=== PATIENT | female | born 1955 | race Caucasian/White ===

== ENCOUNTER 2023-03-04 13:06 | Inpatient (IN) | payer MEDICARE, OTHER ==
[~2023-03-04] VITALS: Ht 152.4 cm; Wt 56.2 kg
[2023-03-04 14:06] LABS: BASOPHILS # (AUTO) 0.1 K/uL (0.0-0.2); BASOPHILS % (AUTO) 0.7 % (0.0-2.0); EOSINOPHILS # (AUTO) 0.1 K/uL (0.0-0.7); EOSINOPHILS % (AUTO) 0.8 % (0.0-6.0); HEMATOCRIT 41 % (33-45); HEMOGLOBIN 13.7 g/dL (11.5-14.8); LYMPHOCYTES # (AUTO) 7.6 K/uL (0.8-4.8); LYMPHOCYTES % (AUTO) 54.3 % (20.0-44.0); MEAN CORPUSCULAR HEMOGLOBIN 30 PG (26.0-33.0); MEAN CORPUSCULAR HGB CONC 34 g/dl (31.0-36.0); MEAN CORPUSCULAR VOLUME 90 fL (82-100); MONOCYTES % (AUTO) 7.2 % (2.0-12.0); NEUTROPHILS # (AUTO) 5.2 K/uL (1.8-8.9); PLATELET COUNT (AUTO) 256 K/uL (150-450); RED BLOOD CELL COUNT(AUTO) 4.56 MIL/uL (4.0-5.2); RED CELL DISTRIBUTION WIDTH 13.7 % (11.5-15.0); WHITE BLOOD COUNT (AUTO) 13.9 K/uL (4.3-11.0)
[2023-03-04 14:16] LABS: APPEARANCE,URINE SLIGHTLY CLOUDY (CLEAR); BILIRUBIN,URINE NEGATIVE (NEGATIVE); BLOOD, URINE NEGATIVE Ery/uL (NEGATIVE); COLOR,URINE YELLOW (YELLOW); KETONES,URINE 1+ mg/dL (NEGATIVE); LEUKOCYTE ESTERASE ,URINE NEGATIVE (NEGATIVE); NITRITE, URINE NEGATIVE (NEGATIVE); PH,URINE 5.5 (5.0-8.0); PROTEIN,URINE TRACE mg/dl (NEGATIVE); UGLUCOSE TRACE mg/dL (NEGATIVE); UROBILINOGEN,URINE 0.2 EU/dL (0.2)
[2023-03-04 14:21] LABS: CALCIUM, SERUM 9.1 mg/dL (8.5-10.1); CARBON DIOXIDE 28 mmol/L (21-32); CHLORIDE 98 mmol/L (98-107); CREATININE 0.7 mg/dL (0.6-1.3); GLUCOSE 223 mg/dL (74-106); POTASSIUM 3.7 mmol/L (3.5-5.1); SODIUM SERUM 133 mmol/L (136-145); UREA NITROGEN, BLOOD 14 mg/dL (7-18)
[2023-03-04 14:22] LABS: ADD URINE CULTURE NO; BACTERIA,URINE Rare /HPF (None Seen); RBC,URINE 0-2 /HPF (0-2); SQUAMOUS EPITHELIAL CELL,UR Few /HPF (None Seen); WBC,URINE 0-2 /HPF (0-3)
[2023-03-04 14:28] LABS: ALANINE AMINOTRANSFERASE 19 U/L (12-78); ALBUMIN 3.2 g/dL (3.4-5.0); ALKALINE PHOSPHATASE 81 U/L (46-116); ASPARTATE AMINOTRANSFERASE 11 U/L (15-37); BILIRUBIN,DIRECT 0.1 mg/dL (0.0-0.2); BILIRUBIN,TOTAL 0.2 mg/dL (0.2-1.0); SALICYLATE 1.4 mg/dL (2.8-20.0); TOTAL PROTEIN, SERUM 6.8 g/dL (6.4-8.2)
[2023-03-04 14:29] LABS: ACETAMINOPHEN <10 ug/ml (10-30); ALCOHOL, BLOOD < 3 mg/dL (0-10)
[2023-03-04 14:32] LABS: AMPHETAMINE, URINE NEGATIVE (NEGATIVE); BARBITURATE, URINE NEGATIVE (NEGATIVE); BENZODIAZEPINE, URINE NEGATIVE (NEGATIVE); CANNABINOID, URINE NEGATIVE (NEGATIVE); COCCAINE, URINE NEGATIVE (NEGATIVE); OPIATE, URINE NEGATIVE (NEGATIVE); PHENCYCLIDINE SCREEN,URINE NEGATIVE (NEGATIVE)
[2023-03-04] MEDS ORDERED: PROP40TA7 PO (14:45)
[2023-03-04] MEDS ORDERED: DOCU100T2 PO (14:45)
[2023-03-04] MEDS ORDERED: MULT-754 PO (14:45)
[2023-03-04] MEDS ORDERED: VITA1TAB20 PO (14:45)
[2023-03-04] MEDS ORDERED: ERGO500093 PO (14:45)
[2023-03-04] MEDS ORDERED: PANT20TA2 PO (14:45)
[2023-03-04] MEDS ORDERED: DIVA250T47 PO (14:45)
[2023-03-04] MEDS ORDERED: CHLO473M5 MM (14:45)
[2023-03-04] MEDS ORDERED: ATOR20TA PO (14:45)
[2023-03-04] MEDS ORDERED: LEVO25TA7 PO (14:45)
[2023-03-04] MEDS ORDERED: HALO1TAB5 PO (14:45)
[2023-03-04] MEDS: PROPRANOLOL HCL 40 MG TABLET PO SCH (17:00)
[2023-03-04] MEDS: DOCUSATE SODIUM 100 MG CAPSULE PO SCH (17:00)
[2023-03-04] MEDS ORDERED: LORAZEPAM 1 MG TABLET PO PRN (18:00)
[2023-03-04] MEDS ORDERED: ACETAMINOPHEN 325 MG TABLET PO PRN (18:00)
[2023-03-04] MEDS ORDERED: MAG HYDROX/AL HYDROX/SIMETH 30 ML UDC PO PRN (18:00)
[2023-03-04] MEDS ORDERED: MAGNESIUM HYDROXIDE 30 ML UDC PO PRN (18:00)
[2023-03-04 20:00] VITALS: BP 125/57; TEMP 98.4; O2SAT 97
[2023-03-04] MEDS ORDERED: BLOOD SUGAR DIAGNOSTIC 1 EACH STRIP IN ONE (20:30)
[2023-03-04] MEDS: Z GUARD REMEDY 4 OZ OINT TP SCH (20:43)
[2023-03-04] MEDS: CHLORHEXIDINE GLUCONATE 15 ML UDC MM SCH (21:23)
[2023-03-04] MEDS: ZOLPIDEM TARTRATE 5 MG TABLET PO PRN (23:27)
[2023-03-05] MEDS: PANTOPRAZOLE 40 MG TABLET.DR PO SCH (07:46)
[2023-03-05 07:54] LABS: CHOLESTEROL 164 mg/dL (<200); HDL CHOLESTEROL 44 mg/dL (40-60); LDL 86 mg/dL (0-99); TRIGLYCERIDES 186 mg/dL (30-150)
[2023-03-05 07:56] LABS: BILIRUBIN,TOTAL 0.3 mg/dL (0.2-1.0); CALCIUM, SERUM 8.8 mg/dL (8.5-10.1); CREATININE 0.6 mg/dL (0.6-1.3); POTASSIUM 3.5 mmol/L (3.5-5.1); TOTAL PROTEIN, SERUM 6.4 g/dL (6.4-8.2)
[2023-03-05 08:00] VITALS: BP 154/85; TEMP 97.8; O2SAT 93
[2023-03-05] MEDS: PROPRANOLOL HCL 40 MG TABLET PO SCH ×2 (08:19→16:08)
[2023-03-05] MEDS: DOCUSATE SODIUM 100 MG CAPSULE PO SCH ×2 (08:19→16:07)
[2023-03-05] MEDS: LEVOTHYROXINE SODIUM 25 MCG TABLET PO SCH (08:21)
[2023-03-05] MEDS: MULTIVITAMINS,THERAGRAN 1 UDTAB TABLET PO SCH (08:22)
[2023-03-05] MEDS: Z GUARD REMEDY 4 OZ OINT TP SCH ×2 (09:19→21:22)
[2023-03-05 16:00] VITALS: BP 143/88; TEMP 98.4; O2SAT 96
[2023-03-05] MEDS: risperiDONE 1 MG TABLET PO SCH (16:13)
[2023-03-05 20:00] VITALS: BP 150/68; TEMP 98.1; O2SAT 96
[2023-03-05] MEDS: ZOLPIDEM TARTRATE 5 MG TABLET PO PRN (21:21)
[2023-03-05] MEDS: DIVALPROEX SODIUM 250 MG TABLET.DR PO SCH (21:21)
[2023-03-05] MEDS: CHLORHEXIDINE GLUCONATE 15 ML UDC MM SCH (21:24)
[2023-03-06 08:00] VITALS: BP 151/74; TEMP 97.9; O2SAT 97
[2023-03-06] MEDS: LEVOTHYROXINE SODIUM 25 MCG TABLET PO SCH (08:28)
[2023-03-06] MEDS: DOCUSATE SODIUM 100 MG CAPSULE PO SCH ×3 (08:28→16:13)
[2023-03-06] MEDS: risperiDONE 1 MG TABLET PO SCH ×2 (08:28→16:14)
[2023-03-06] MEDS: MULTIVITAMINS,THERAGRAN 1 UDTAB TABLET PO SCH (08:28)
[2023-03-06] MEDS: DIVALPROEX SODIUM 250 MG TABLET.DR PO SCH ×3 (08:28→21:29)
[2023-03-06] MEDS: PANTOPRAZOLE 40 MG TABLET.DR PO SCH (08:28)
[2023-03-06] MEDS: PROPRANOLOL HCL 40 MG TABLET PO SCH ×2 (08:29→16:14)
[2023-03-06] MEDS: VENLAFAXINE XR 75 MG CAP.SR.24H PO SCH (08:31)
[2023-03-06] MEDS: Z GUARD REMEDY 4 OZ OINT TP SCH ×2 (09:32→21:30)
[2023-03-06 16:00] VITALS: BP 136/69; TEMP 97.7; O2SAT 96
[2023-03-06 20:00] VITALS: BP 156/71; TEMP 98.3; O2SAT 98
[2023-03-06] MEDS: CHLORHEXIDINE GLUCONATE 15 ML UDC MM SCH ×2 (21:29→21:47)
[2023-03-07 08:00] VITALS: BP 166/81; TEMP 98; O2SAT 98
[2023-03-07] MEDS: DIVALPROEX SODIUM 250 MG TABLET.DR PO SCH ×2 (08:14→21:37)
[2023-03-07] MEDS: PANTOPRAZOLE 40 MG TABLET.DR PO SCH (08:14)
[2023-03-07] MEDS: LEVOTHYROXINE SODIUM 25 MCG TABLET PO SCH (08:14)
[2023-03-07] MEDS: MULTIVITAMINS,THERAGRAN 1 UDTAB TABLET PO SCH (08:14)
[2023-03-07] MEDS: PROPRANOLOL HCL 40 MG TABLET PO SCH ×2 (08:14→16:07)
[2023-03-07] MEDS: risperiDONE 1 MG TABLET PO SCH ×2 (08:14→16:07)
[2023-03-07] MEDS: DOCUSATE SODIUM 100 MG CAPSULE PO SCH ×2 (08:14→16:08)
[2023-03-07] MEDS: VENLAFAXINE XR 75 MG CAP.SR.24H PO SCH (08:14)
[2023-03-07] MEDS: Z GUARD REMEDY 4 OZ OINT TP SCH ×2 (09:22→21:39)
[2023-03-07] MEDS: CLOTRIMAZOLE 1% 15 GM TUBE TP SCH ×2 (09:22→16:55)
[2023-03-07 10:05] VITALS: BP 143/66
[2023-03-07 16:00] VITALS: BP 138/75; TEMP 98; O2SAT 95
[2023-03-07] MEDS ORDERED: DEXTROSE 50%-WATER 50 ML DISP.SYRIN IV PRN (16:30)
[2023-03-07] MEDS: BLOOD SUGAR DIAGNOSTIC 1 EACH STRIP IN SCH ×2 (16:34→21:49)
[2023-03-07] MEDS: METFORMIN 500 MG TABLET PO SCH (16:55)
[2023-03-07] MEDS: INSULIN REGULAR, HUMAN 100 UNIT/ML 3 ML VIAL SQ PRN (17:13)
[2023-03-07 20:00] VITALS: BP 116/69; TEMP 98.2; O2SAT 99
[2023-03-07] MEDS: CHLORHEXIDINE GLUCONATE 15 ML UDC MM SCH (21:37)
[2023-03-08] MEDS: BLOOD SUGAR DIAGNOSTIC 1 EACH STRIP IN SCH ×4 (07:43→21:44)
[2023-03-08 08:00] VITALS: BP 149/78; TEMP 97.7; O2SAT 97
[2023-03-08] MEDS: PROPRANOLOL HCL 40 MG TABLET PO SCH ×2 (08:37→16:27)
[2023-03-08] MEDS: VENLAFAXINE XR 75 MG CAP.SR.24H PO SCH (08:37)
[2023-03-08] MEDS: DIVALPROEX SODIUM 250 MG TABLET.DR PO SCH ×2 (08:37→21:43)
[2023-03-08] MEDS: risperiDONE 1 MG TABLET PO SCH ×2 (08:38→16:30)
[2023-03-08] MEDS: LEVOTHYROXINE SODIUM 25 MCG TABLET PO SCH (08:38)
[2023-03-08] MEDS: MULTIVITAMINS,THERAGRAN 1 UDTAB TABLET PO SCH (08:38)
[2023-03-08] MEDS: DOCUSATE SODIUM 100 MG CAPSULE PO SCH ×2 (08:38→16:30)
[2023-03-08] MEDS: PANTOPRAZOLE 40 MG TABLET.DR PO SCH (08:38)
[2023-03-08] MEDS: METFORMIN 500 MG TABLET PO SCH ×2 (08:38→16:27)
[2023-03-08] MEDS: INSULIN REGULAR, HUMAN 100 UNIT/ML 3 ML VIAL SQ PRN ×3 (08:41→22:27)
[2023-03-08] MEDS: Z GUARD REMEDY 4 OZ OINT TP SCH ×2 (09:26→21:43)
[2023-03-08] MEDS: CLOTRIMAZOLE 1% 15 GM TUBE TP SCH ×2 (09:27→16:30)
[2023-03-08 16:00] VITALS: BP 128/71; TEMP 99; O2SAT 94
[2023-03-08 20:04] VITALS: BP 109/71; TEMP 98.1; O2SAT 95
[2023-03-08] MEDS: CHLORHEXIDINE GLUCONATE 15 ML UDC MM SCH (21:44)
[2023-03-09] MEDS: ZOLPIDEM TARTRATE 5 MG TABLET PO PRN ×2 (02:56→21:53)
[2023-03-09] MEDS: BLOOD SUGAR DIAGNOSTIC 1 EACH STRIP IN SCH ×4 (07:30→21:53)
[2023-03-09 07:56] LABS: ALBUMIN 2.9 g/dL (3.4-5.0); BILIRUBIN,TOTAL 0.4 mg/dL (0.2-1.0); CALCIUM, SERUM 8.7 mg/dL (8.5-10.1); CREATININE 0.6 mg/dL (0.6-1.3); TOTAL PROTEIN, SERUM 6.2 g/dL (6.4-8.2)
[2023-03-09 08:00] VITALS: BP 137/91; TEMP 98.2; O2SAT 97
[2023-03-09] MEDS: PROPRANOLOL HCL 40 MG TABLET PO SCH ×2 (09:34→16:02)
[2023-03-09] MEDS: DOCUSATE SODIUM 100 MG CAPSULE PO SCH ×2 (09:34→16:04)
[2023-03-09] MEDS: DIVALPROEX SODIUM 250 MG TABLET.DR PO SCH ×2 (09:34→21:52)
[2023-03-09] MEDS: LEVOTHYROXINE SODIUM 25 MCG TABLET PO SCH (09:35)
[2023-03-09] MEDS: PANTOPRAZOLE 40 MG TABLET.DR PO SCH (09:35)
[2023-03-09] MEDS: risperiDONE 1 MG TABLET PO SCH ×2 (09:35→16:04)
[2023-03-09] MEDS: MULTIVITAMINS,THERAGRAN 1 UDTAB TABLET PO SCH (09:35)
[2023-03-09] MEDS: METFORMIN 500 MG TABLET PO SCH ×2 (09:35→16:02)
[2023-03-09] MEDS: VENLAFAXINE XR 75 MG CAP.SR.24H PO SCH (09:35)
[2023-03-09] MEDS: CLOTRIMAZOLE 1% 15 GM TUBE TP SCH ×2 (09:39→16:15)
[2023-03-09] MEDS: Z GUARD REMEDY 4 OZ OINT TP SCH ×2 (09:39→21:52)
[2023-03-09] MEDS: INSULIN REGULAR, HUMAN 100 UNIT/ML 3 ML VIAL SQ PRN ×3 (13:04→21:55)
[2023-03-09 16:00] VITALS: BP 144/77; TEMP 98.4; O2SAT 95
[2023-03-09 20:16] VITALS: BP 135/70; TEMP 98.3; O2SAT 96
[2023-03-09] MEDS: CHLORHEXIDINE GLUCONATE 15 ML UDC MM SCH (21:53)
[2023-03-10 08:00] VITALS: BP 138/67; TEMP 98.1; O2SAT 97
[2023-03-10] MEDS: BLOOD SUGAR DIAGNOSTIC 1 EACH STRIP IN SCH ×4 (08:04→21:37)
[2023-03-10] MEDS: PANTOPRAZOLE 40 MG TABLET.DR PO SCH (08:27)
[2023-03-10] MEDS: METFORMIN 500 MG TABLET PO SCH ×2 (09:27→16:58)
[2023-03-10] MEDS: DOCUSATE SODIUM 100 MG CAPSULE PO SCH ×2 (09:27→17:00)
[2023-03-10] MEDS: VENLAFAXINE XR 75 MG CAP.SR.24H PO SCH (09:27)
[2023-03-10] MEDS: PROPRANOLOL HCL 40 MG TABLET PO SCH ×2 (09:28→16:58)
[2023-03-10] MEDS: DIVALPROEX SODIUM 250 MG TABLET.DR PO SCH ×2 (09:28→21:36)
[2023-03-10] MEDS: Z GUARD REMEDY 4 OZ OINT TP SCH ×2 (09:29→21:37)
[2023-03-10] MEDS: CLOTRIMAZOLE 1% 15 GM TUBE TP SCH ×2 (09:29→17:00)
[2023-03-10] MEDS: MULTIVITAMINS,THERAGRAN 1 UDTAB TABLET PO SCH (09:29)
[2023-03-10] MEDS: LEVOTHYROXINE SODIUM 25 MCG TABLET PO SCH (09:29)
[2023-03-10] MEDS: INSULIN REGULAR, HUMAN 100 UNIT/ML 3 ML VIAL SQ PRN ×2 (10:17→21:38)
[2023-03-10 16:03] VITALS: BP 134/77; TEMP 98.6; O2SAT 94
[2023-03-10] MEDS: risperiDONE 1 MG TABLET PO SCH (16:58)
[2023-03-10 20:00] VITALS: BP 131/74; TEMP 98.1; O2SAT 96
[2023-03-10] MEDS: CHLORHEXIDINE GLUCONATE 15 ML UDC MM SCH (21:36)
[2023-03-11 08:00] VITALS: BP 123/93; TEMP 97.7; O2SAT 96
[2023-03-11] MEDS: BLOOD SUGAR DIAGNOSTIC 1 EACH STRIP IN SCH ×4 (08:58→21:21)
[2023-03-11] MEDS: PANTOPRAZOLE 40 MG TABLET.DR PO SCH (09:03)
[2023-03-11] MEDS: DIVALPROEX SODIUM 250 MG TABLET.DR PO SCH ×2 (09:03→20:40)
[2023-03-11] MEDS: METFORMIN 500 MG TABLET PO SCH ×2 (09:03→17:11)
[2023-03-11] MEDS: VENLAFAXINE XR 75 MG CAP.SR.24H PO SCH (09:03)
[2023-03-11] MEDS: DOCUSATE SODIUM 100 MG CAPSULE PO SCH ×2 (09:03→17:00)
[2023-03-11] MEDS: risperiDONE 1 MG TABLET PO SCH ×2 (09:04→17:11)
[2023-03-11] MEDS: PROPRANOLOL HCL 40 MG TABLET PO SCH ×2 (09:04→17:14)
[2023-03-11] MEDS: MULTIVITAMINS,THERAGRAN 1 UDTAB TABLET PO SCH (09:04)
[2023-03-11] MEDS: LEVOTHYROXINE SODIUM 25 MCG TABLET PO SCH (09:04)
[2023-03-11] MEDS: Z GUARD REMEDY 4 OZ OINT TP SCH ×2 (09:06→20:54)
[2023-03-11] MEDS: CLOTRIMAZOLE 1% 15 GM TUBE TP SCH ×2 (12:28→17:11)
[2023-03-11 16:00] VITALS: BP 125/66; TEMP 98.6; O2SAT 94
[2023-03-11 19:39] VITALS: BP 132/67; TEMP 98; O2SAT 96
[2023-03-11] MEDS: CHLORHEXIDINE GLUCONATE 15 ML UDC MM SCH (21:11)
[2023-03-11] MEDS: INSULIN REGULAR, HUMAN 100 UNIT/ML 3 ML VIAL SQ PRN (21:24)
[2023-03-12 08:03] VITALS: BP 145/69; TEMP 97.2; O2SAT 93
[2023-03-12] MEDS: PANTOPRAZOLE 40 MG TABLET.DR PO SCH (08:22)
[2023-03-12] MEDS: BLOOD SUGAR DIAGNOSTIC 1 EACH STRIP IN SCH ×4 (08:22→21:26)
[2023-03-12] MEDS: MULTIVITAMINS,THERAGRAN 1 UDTAB TABLET PO SCH (08:37)
[2023-03-12] MEDS: VENLAFAXINE XR 75 MG CAP.SR.24H PO SCH (08:38)
[2023-03-12] MEDS: risperiDONE 1 MG TABLET PO SCH ×2 (08:38→16:07)
[2023-03-12] MEDS: DIVALPROEX SODIUM 250 MG TABLET.DR PO SCH ×2 (08:39→21:03)
[2023-03-12] MEDS: PROPRANOLOL HCL 40 MG TABLET PO SCH ×2 (08:39→16:08)
[2023-03-12] MEDS: DOCUSATE SODIUM 100 MG CAPSULE PO SCH ×2 (08:39→16:07)
[2023-03-12] MEDS: METFORMIN 500 MG TABLET PO SCH ×2 (08:39→16:07)
[2023-03-12] MEDS: LEVOTHYROXINE SODIUM 25 MCG TABLET PO SCH (08:39)
[2023-03-12] MEDS: CLOTRIMAZOLE 1% 15 GM TUBE TP SCH ×2 (08:40→17:19)
[2023-03-12] MEDS: Z GUARD REMEDY 4 OZ OINT TP SCH ×2 (08:41→21:04)
[2023-03-12] MEDS: INSULIN REGULAR, HUMAN 100 UNIT/ML 3 ML VIAL SQ PRN ×2 (08:44→19:04)
[2023-03-12] MEDS: CHLORHEXIDINE GLUCONATE 15 ML UDC MM SCH (21:03)
[2023-03-12 21:51] VITALS: BP 137/68; TEMP 97.9; O2SAT 94
[2023-03-13] MEDS: ZOLPIDEM TARTRATE 5 MG TABLET PO PRN ×2 (00:42→21:25)
[2023-03-13] MEDS: BLOOD SUGAR DIAGNOSTIC 1 EACH STRIP IN SCH ×4 (07:33→21:24)
[2023-03-13] MEDS: INSULIN REGULAR, HUMAN 100 UNIT/ML 3 ML VIAL SQ PRN ×3 (07:34→17:11)
[2023-03-13 08:00] VITALS: BP 157/83; TEMP 98.1; O2SAT 97
[2023-03-13] MEDS: DIVALPROEX SODIUM 250 MG TABLET.DR PO SCH ×2 (08:15→20:45)
[2023-03-13] MEDS: METFORMIN 500 MG TABLET PO SCH ×2 (08:15→16:13)
[2023-03-13] MEDS: DOCUSATE SODIUM 100 MG CAPSULE PO SCH ×2 (08:16→16:14)
[2023-03-13] MEDS: LEVOTHYROXINE SODIUM 25 MCG TABLET PO SCH (08:16)
[2023-03-13] MEDS: risperiDONE 1 MG TABLET PO SCH ×2 (08:16→16:13)
[2023-03-13] MEDS: VENLAFAXINE XR 75 MG CAP.SR.24H PO SCH (08:16)
[2023-03-13] MEDS: PANTOPRAZOLE 40 MG TABLET.DR PO SCH (08:16)
[2023-03-13] MEDS: MULTIVITAMINS,THERAGRAN 1 UDTAB TABLET PO SCH (08:16)
[2023-03-13] MEDS: PROPRANOLOL HCL 40 MG TABLET PO SCH ×2 (08:19→16:14)
[2023-03-13] MEDS: Z GUARD REMEDY 4 OZ OINT TP SCH ×2 (09:43→20:45)
[2023-03-13] MEDS: CLOTRIMAZOLE 1% 15 GM TUBE TP SCH ×2 (09:43→16:15)
[2023-03-13 16:00] VITALS: BP 132/74; TEMP 97.8; O2SAT 95
[2023-03-13 20:00] VITALS: BP 118/78; TEMP 98.4; O2SAT 95
[2023-03-13] MEDS: CHLORHEXIDINE GLUCONATE 15 ML UDC MM SCH (21:25)
[2023-03-14] MEDS: BLOOD SUGAR DIAGNOSTIC 1 EACH STRIP IN SCH ×4 (07:26→21:24)
[2023-03-14] MEDS: INSULIN REGULAR, HUMAN 100 UNIT/ML 3 ML VIAL SQ PRN ×2 (07:42→21:28)
[2023-03-14 08:00] VITALS: BP 132/79; TEMP 98.1; O2SAT 96
[2023-03-14] MEDS: DIVALPROEX SODIUM 250 MG TABLET.DR PO SCH ×2 (08:07→21:13)
[2023-03-14] MEDS: risperiDONE 1 MG TABLET PO SCH ×2 (08:07→16:21)
[2023-03-14] MEDS: METFORMIN 500 MG TABLET PO SCH ×2 (08:07→16:21)
[2023-03-14] MEDS: LEVOTHYROXINE SODIUM 25 MCG TABLET PO SCH (08:07)
[2023-03-14] MEDS: DOCUSATE SODIUM 100 MG CAPSULE PO SCH ×2 (08:08→16:20)
[2023-03-14] MEDS: VENLAFAXINE XR 75 MG CAP.SR.24H PO SCH (08:08)
[2023-03-14] MEDS: PANTOPRAZOLE 40 MG TABLET.DR PO SCH (08:08)
[2023-03-14] MEDS: MULTIVITAMINS,THERAGRAN 1 UDTAB TABLET PO SCH (08:08)
[2023-03-14] MEDS: PROPRANOLOL HCL 40 MG TABLET PO SCH ×2 (08:08→16:22)
[2023-03-14] MEDS: CLOTRIMAZOLE 1% 15 GM TUBE TP SCH ×2 (09:12→17:04)
[2023-03-14] MEDS: Z GUARD REMEDY 4 OZ OINT TP SCH ×2 (09:12→21:13)
[2023-03-14 16:00] VITALS: BP 134/71; TEMP 97.7; O2SAT 97
[2023-03-14 20:00] VITALS: BP 126/69; TEMP 98.3; O2SAT 95
[2023-03-14] MEDS: CHLORHEXIDINE GLUCONATE 15 ML UDC MM SCH (21:13)
[2023-03-15] MEDS: ZOLPIDEM TARTRATE 5 MG TABLET PO PRN (02:20)
[2023-03-15] MEDS: BLOOD SUGAR DIAGNOSTIC 1 EACH STRIP IN SCH ×4 (07:32→22:00)
[2023-03-15 08:00] VITALS: BP 152/78; TEMP 97.5; O2SAT 96
[2023-03-15] MEDS: MULTIVITAMINS,THERAGRAN 1 UDTAB TABLET PO SCH (08:10)
[2023-03-15] MEDS: risperiDONE 1 MG TABLET PO SCH ×2 (08:10→16:16)
[2023-03-15] MEDS: VENLAFAXINE XR 75 MG CAP.SR.24H PO SCH (08:10)
[2023-03-15] MEDS: PANTOPRAZOLE 40 MG TABLET.DR PO SCH (08:10)
[2023-03-15] MEDS: DIVALPROEX SODIUM 250 MG TABLET.DR PO SCH ×2 (08:11→21:23)
[2023-03-15] MEDS: DOCUSATE SODIUM 100 MG CAPSULE PO SCH ×2 (08:11→16:17)
[2023-03-15] MEDS: LEVOTHYROXINE SODIUM 25 MCG TABLET PO SCH (08:11)
[2023-03-15] MEDS: PROPRANOLOL HCL 40 MG TABLET PO SCH ×2 (08:11→16:16)
[2023-03-15] MEDS: METFORMIN 500 MG TABLET PO SCH ×2 (08:11→16:56)
[2023-03-15] MEDS: CLOTRIMAZOLE 1% 15 GM TUBE TP SCH ×2 (08:28→16:56)
[2023-03-15] MEDS: Z GUARD REMEDY 4 OZ OINT TP SCH ×2 (08:28→21:23)
[2023-03-15 16:00] VITALS: BP 144/64; TEMP 98.6; O2SAT 96
[2023-03-15] MEDS: INSULIN REGULAR, HUMAN 100 UNIT/ML 3 ML VIAL SQ PRN (17:28)
[2023-03-15 20:00] VITALS: BP 118/68; TEMP 98.8; O2SAT 95
[2023-03-15] MEDS: CHLORHEXIDINE GLUCONATE 15 ML UDC MM SCH (21:23)
[2023-03-16 08:00] VITALS: BP 151/70; TEMP 97.6; O2SAT 94
[2023-03-16] MEDS: BLOOD SUGAR DIAGNOSTIC 1 EACH STRIP IN SCH ×4 (08:12→21:47)
[2023-03-16] MEDS: PANTOPRAZOLE 40 MG TABLET.DR PO SCH (08:12)
[2023-03-16] MEDS: MULTIVITAMINS,THERAGRAN 1 UDTAB TABLET PO SCH (08:37)
[2023-03-16] MEDS: METFORMIN 500 MG TABLET PO SCH ×2 (08:37→16:59)
[2023-03-16] MEDS: VENLAFAXINE XR 75 MG CAP.SR.24H PO SCH (08:37)
[2023-03-16] MEDS: LEVOTHYROXINE SODIUM 25 MCG TABLET PO SCH (08:39)
[2023-03-16] MEDS: DIVALPROEX SODIUM 250 MG TABLET.DR PO SCH ×2 (08:39→21:01)
[2023-03-16] MEDS: DOCUSATE SODIUM 100 MG CAPSULE PO SCH ×2 (08:39→17:00)
[2023-03-16] MEDS: PROPRANOLOL HCL 40 MG TABLET PO SCH ×2 (08:39→17:01)
[2023-03-16] MEDS: risperiDONE 1 MG TABLET PO SCH ×2 (08:39→16:59)
[2023-03-16] MEDS: CLOTRIMAZOLE 1% 15 GM TUBE TP SCH ×2 (09:00→17:02)
[2023-03-16] MEDS: Z GUARD REMEDY 4 OZ OINT TP SCH ×2 (09:00→21:02)
[2023-03-16 16:00] VITALS: BP 145/82; TEMP 97.8; O2SAT 98
[2023-03-16 20:23] VITALS: BP 132/60; TEMP 97.8; O2SAT 94
[2023-03-16] MEDS: INSULIN REGULAR, HUMAN 100 UNIT/ML 3 ML VIAL SQ PRN (21:49)
[2023-03-16] MEDS: CHLORHEXIDINE GLUCONATE 15 ML UDC MM SCH (21:51)
[2023-03-17 08:00] VITALS: BP 167/85; TEMP 97.7; O2SAT 96
[2023-03-17] MEDS: LEVOTHYROXINE SODIUM 25 MCG TABLET PO SCH (08:19)
[2023-03-17] MEDS: PANTOPRAZOLE 40 MG TABLET.DR PO SCH (08:19)
[2023-03-17] MEDS: PROPRANOLOL HCL 40 MG TABLET PO SCH ×2 (08:19→16:37)
[2023-03-17] MEDS: BLOOD SUGAR DIAGNOSTIC 1 EACH STRIP IN SCH ×4 (08:20→21:05)
[2023-03-17] MEDS: METFORMIN 500 MG TABLET PO SCH ×2 (08:20→16:38)
[2023-03-17] MEDS: DIVALPROEX SODIUM 250 MG TABLET.DR PO SCH ×2 (08:20→21:01)
[2023-03-17] MEDS: VENLAFAXINE XR 75 MG CAP.SR.24H PO SCH (08:20)
[2023-03-17] MEDS: DOCUSATE SODIUM 100 MG CAPSULE PO SCH ×2 (08:20→16:37)
[2023-03-17] MEDS: risperiDONE 1 MG TABLET PO SCH ×2 (08:20→16:37)
[2023-03-17] MEDS: MULTIVITAMINS,THERAGRAN 1 UDTAB TABLET PO SCH (08:39)
[2023-03-17] MEDS: CLOTRIMAZOLE 1% 15 GM TUBE TP SCH ×2 (08:40→16:38)
[2023-03-17] MEDS: Z GUARD REMEDY 4 OZ OINT TP SCH ×2 (08:40→21:01)
[2023-03-17 16:00] VITALS: BP 129/76; TEMP 98.7; O2SAT 96
[2023-03-17 20:00] VITALS: BP 117/69; TEMP 98.1; O2SAT 96
[2023-03-17] MEDS: CHLORHEXIDINE GLUCONATE 15 ML UDC MM SCH (21:02)
[2023-03-17] MEDS: INSULIN REGULAR, HUMAN 100 UNIT/ML 3 ML VIAL SQ PRN (21:08)
[2023-03-18] MEDS: BLOOD SUGAR DIAGNOSTIC 1 EACH STRIP IN SCH ×4 (07:39→21:49)
[2023-03-18 08:00] VITALS: BP 131/62; TEMP 97.9; O2SAT 96
[2023-03-18] MEDS: INSULIN REGULAR, HUMAN 100 UNIT/ML 3 ML VIAL SQ PRN ×2 (08:24→21:51)
[2023-03-18] MEDS: METFORMIN 500 MG TABLET PO SCH ×2 (08:56→17:05)
[2023-03-18] MEDS: PANTOPRAZOLE 40 MG TABLET.DR PO SCH (08:56)
[2023-03-18] MEDS: DIVALPROEX SODIUM 250 MG TABLET.DR PO SCH ×2 (08:56→21:08)
[2023-03-18] MEDS: MULTIVITAMINS,THERAGRAN 1 UDTAB TABLET PO SCH (08:56)
[2023-03-18] MEDS: VENLAFAXINE XR 75 MG CAP.SR.24H PO SCH (08:56)
[2023-03-18] MEDS: LEVOTHYROXINE SODIUM 25 MCG TABLET PO SCH (08:57)
[2023-03-18] MEDS: risperiDONE 1 MG TABLET PO SCH ×2 (08:57→16:43)
[2023-03-18] MEDS: PROPRANOLOL HCL 40 MG TABLET PO SCH ×2 (08:57→16:44)
[2023-03-18] MEDS: DOCUSATE SODIUM 100 MG CAPSULE PO SCH ×2 (08:57→16:43)
[2023-03-18] MEDS: Z GUARD REMEDY 4 OZ OINT TP SCH ×2 (09:30→21:14)
[2023-03-18] MEDS: CLOTRIMAZOLE 1% 15 GM TUBE TP SCH ×2 (09:30→16:45)
[2023-03-18 16:00] VITALS: BP 137/76; TEMP 97.8; O2SAT 94
[2023-03-18 19:53] VITALS: BP 118/56; TEMP 97.9; O2SAT 94
[2023-03-18] MEDS: ZOLPIDEM TARTRATE 5 MG TABLET PO PRN (21:09)
[2023-03-18] MEDS: CHLORHEXIDINE GLUCONATE 15 ML UDC MM SCH (21:52)
[2023-03-19 08:00] VITALS: BP 133/74; TEMP 97.9; O2SAT 99
[2023-03-19] MEDS: PANTOPRAZOLE 40 MG TABLET.DR PO SCH (08:23)
[2023-03-19] MEDS: BLOOD SUGAR DIAGNOSTIC 1 EACH STRIP IN SCH ×2 (08:23→12:11)
[2023-03-19] MEDS: VENLAFAXINE XR 75 MG CAP.SR.24H PO SCH (08:51)
[2023-03-19 08:52] VITALS: BP 133/74
[2023-03-19] MEDS: PROPRANOLOL HCL 40 MG TABLET PO SCH (08:52)
[2023-03-19] MEDS: METFORMIN 500 MG TABLET PO SCH (08:52)
[2023-03-19] MEDS: DIVALPROEX SODIUM 250 MG TABLET.DR PO SCH (08:52)
[2023-03-19] MEDS: risperiDONE 1 MG TABLET PO SCH (08:52)
[2023-03-19] MEDS: LEVOTHYROXINE SODIUM 25 MCG TABLET PO SCH (08:52)
[2023-03-19] MEDS: MULTIVITAMINS,THERAGRAN 1 UDTAB TABLET PO SCH (08:52)
[2023-03-19] MEDS: DOCUSATE SODIUM 100 MG CAPSULE PO SCH (08:52)
[2023-03-19] MEDS: INSULIN REGULAR, HUMAN 100 UNIT/ML 3 ML VIAL SQ PRN (08:54)
[2023-03-19] MEDS: CLOTRIMAZOLE 1% 15 GM TUBE TP SCH (09:13)
[2023-03-19] MEDS: Z GUARD REMEDY 4 OZ OINT TP SCH (09:13)
== END 2023-03-19 13:45 | DRG 885 ==
LOC: ER 13:12 → GPS 17:27
PROVIDERS: ADMIT Psychiatry & Neurology Psychiatry; ATTEND Nurse Practitioner Acute Care
DX: F25.1 Schizoaffective disorder, depressive type (principal); E11.65 Type 2 diabetes mellitus with hyperglycemia; F79 Unspecified intellectual disabilities; F29 Unspecified psychosis not due to a substance or known physiological condition; I10 Essential (primary) hypertension; Z20.822 Contact with and (suspected) exposure to COVID-19; E03.9 Hypothyroidism, unspecified; Z79.890 Hormone replacement therapy; Z79.899 Other long term (current) drug therapy; Z73.6 Limitation of activities due to disability; R53.1 Weakness; R27.8 Other lack of coordination; Z91.81 History of falling; F41.9 Anxiety disorder, unspecified; G31.84 Mild cognitive impairment of uncertain or unknown etiology
CPT/HCPCS: 36415; 80048-TC; 80053-TC; 80061-TC; 80076-TC; 80164-TC; 81001; 82962-TC; 85025-TC; 87081-TC; G0480; J1815